=== PATIENT | female | born 2000 | race Caucasian/White ===

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

== ENCOUNTER 2022-04-15 10:58 | Outpatient (CLI) | payer OTHER, SELFPAY ==
[2022-04-15 19:52] LABS: Monoscreen Negative (Negative)
[2022-04-15 19:54] LABS: Negative Monotest Control Negative (Negative); Positive Monotest Control Positive (Positive)
== END 2022-04-15 10:59 | disposition home or self-care (01) ==
LOC: ANHGOSHLAB 11:00
PROVIDERS: PCP Family Medicine; Visit Provider Family Medicine
DX: Z20.828 Contact with and (suspected) exposure to other viral communicable diseases (principal)
CPT/HCPCS: 36415; 86308

== ENCOUNTER 2023-08-02 14:49 | Outpatient (NON) | payer OTHER, SELFPAY | END 2023-08-02 14:50 | disposition home or self-care (01) | LOC: ANHGOSHLAB 14:50 | PROVIDERS: PCP Family Medicine; Visit Provider Family Medicine | DX: R30.0 Dysuria (principal) | CPT/HCPCS: 87077; 87086; 87186 ==